=== PATIENT | male | born 1995 | race Caucasian/White ===

== ENCOUNTER 2022-03-19 06:41 | Emergency (ER) | payer MEDICAID ==
[~2022-03-19] VITALS: Ht 170.2 cm; Wt 97.0 kg
[2022-03-19 06:57] VITALS: BP 137/95
[2022-03-19] MEDS ORDERED: IBUP-2028 MT (11:34)
== END 2022-03-19 12:20 | disposition home or self-care (01) ==
LOC: ER 06:41
DX: M25.532 Pain in left wrist (principal); Y35.893A Legal intervention involving other specified means, suspect injured, initial encounter; Y93.89 Activity, other specified; Y92.018 Other place in single-family (private) house as the place of occurrence of the external cause
CPT/HCPCS: 29125; 73110; 73120; 99284

== ENCOUNTER 2022-07-16 18:50 | Emergency (ER) | payer MEDICAID ==
[~2022-07-16] VITALS: Ht 175.3 cm; Wt 96.1 kg
[~2022-07-16 18:50] MED LIST: IBUP-2028 MT
[2022-07-16 19:41] VITALS: BP 137/84
[2022-07-16] MEDS ORDERED: PENICILLIN G BENZATHINE 1,200,000 UNITS/2ML SYR IM ONE (22:30)
== END 2022-07-16 23:07 | disposition home or self-care (01) ==
LOC: ER 18:50
DX: R05.9 Cough, unspecified (principal); J02.9 Acute pharyngitis, unspecified
CPT/HCPCS: 96372; 99283; J0561

== ENCOUNTER 2022-09-10 13:06 | Emergency (ER) | payer MEDICAID ==
[~2022-09-10] VITALS: Ht 170.2 cm; Wt 90.0 kg
[2022-09-10 13:36] VITALS: O2SAT 98
[2022-09-10 14:15] VITALS: TEMP 98.7
[2022-09-10] MEDS ORDERED: ACETAMINOPHEN 325MG TABLET PO ONE (14:15)
[2022-09-10] MEDS ORDERED: KETOROLAC 60MG/2ML VIAL IM ONE (14:15)
[2022-09-10] MEDS: LIDOCAINE 5% PATCH TOP SCH ×2 (14:45→15:28)
[2022-09-10] MEDS ORDERED: DEXAMETHASONE 10 MG/ML VIAL IM ONE (14:45)
[2022-09-10] MEDS ORDERED: NAPR-1129 MT (15:43)
[2022-09-10] MEDS ORDERED: CYCL10TA21 MT (15:43)
[2022-09-10 16:01] VITALS: BP 107/82; PULSE 79; RESP 16
== END 2022-09-10 16:16 | disposition home or self-care (01) ==
LOC: ER 13:06
DX: S39.92XA Unspecified injury of lower back, initial encounter (principal); G89.11 Acute pain due to trauma; W18.39XA Other fall on same level, initial encounter; Y93.89 Activity, other specified; Y92.89 Other specified places as the place of occurrence of the external cause; Y99.8 Other external cause status
CPT/HCPCS: 96372; 99285; J1100; J1885; Z7610

== ENCOUNTER 2024-11-01 23:40 | Emergency (ER) | payer MEDICAID ==
[~2024-11-01] VITALS: Ht 170.2 cm; Wt 90.6 kg
[~2024-11-01 23:40] MED LIST changes: +CYCL10TA21 MT; +NAPR-1129 MT
[2024-11-01 23:51] VITALS: TEMP 36.9; O2SAT 99
[2024-11-02] MEDS ORDERED: SULF1TAB48 MT (02:24)
[2024-11-02] MEDS ORDERED: MUPI1OIN4 TP (02:24)
[2024-11-02 02:42] VITALS: BP 121/75; PULSE 62; RESP 18; O2SAT 98
== END 2024-11-02 02:46 | disposition home or self-care (01) ==
LOC: ER 23:40
DX: L03.011 Cellulitis of right finger (principal); Z79.899 Other long term (current) drug therapy
CPT/HCPCS: 10060; 99283